=== PATIENT | female | born 1960 | race Caucasian/White ===

== ENCOUNTER 2021-09-02 23:59 | Emergency (ER) | payer MEDICARE, OTHER ==
[~2021-09-02] VITALS: Ht 167.6 cm; Wt 94.3 kg
[2021-09-03] MEDS ORDERED: Voltaren100 GM TOP (02:02)
== END 2021-09-03 02:12 | disposition home or self-care (01) ==
LOC: ER 23:59
DX: S83.91XA Sprain of unspecified site of right knee, initial encounter (principal); I87.8 Other specified disorders of veins; F17.210 Nicotine dependence, cigarettes, uncomplicated; W19.XXXA Unspecified fall, initial encounter
CPT/HCPCS: 73562-RT; 99283-25